=== PATIENT | female | born 1975 | race American Indian/Alaskan Native ===

== ENCOUNTER 2019-08-26 00:44 | Observation (INO) | payer BC ==
[2019-08-26] MEDS ORDERED: ASPIRIN PO ONE (01:28)
--- NOTE | 2019-08-26 02:09 | XRay Report ---
CHEST 1 VIEW INDICATION / CLINICAL INFORMATION: Chest Pain. COMPARISON: 07/31/2019 FINDINGS: SUPPORT DEVICES: None. HEART / MEDIASTINUM: No significant abnormality. LUNGS / PLEURA: No significant pulmonary or pleural abnormality. No pneumothorax. ADDITIONAL FINDINGS: No significant additional findings. IMPRESSION: 1. No acute findings. Signer Name: Jered Quintero MD Signed: 08/26/2019 2:05 AM Workstation Name: [id number]
[2019-08-26 02:10] LABS: Basophils % (Auto) 0.5 % (0.0-1.8); Eosinophils # (Auto) 0.2 K/mm3 (0.0-0.4); Eosinophils % (Auto) 2.9 % (0.0-4.3); Hematocrit 29.9 % (30.3-42.9); Hemoglobin 9.7 gm/dl (10.1-14.3); Lymphocytes % (Auto) 30.2 % (13.4-35.0); Mean Corpuscular HGB Conc 32 % (30-34); Mean Corpuscular Volume 76 fl (79-97); Monocytes # (Auto) 0.4 K/mm3 (0.0-0.8); Monocytes % (Auto) 6.6 % (0.0-7.3); Platelet Count 390 K/mm3 (140-440); Red Blood Count 3.95 M/mm3 (3.65-5.03)
[2019-08-26 02:28] LABS: Red Cell Distribution Width 22.3 % (13.2-15.2)
[2019-08-26 02:52] LABS: BUN/Creatinine Ratio 19; Blood Urea Nitrogen 15 mg/dL (7-17); Calcium 9.6 mg/dL (8.4-10.2); Hemolysis Index 0
[2019-08-26] MEDS ORDERED: NITRO-BID 2% TP ONE (03:34)
--- NOTE | 2019-08-26 03:47 | Emergency Department Report ---
HPI - General Chief Complaint: Chest Pain Time Seen by Provider: 08/26/19 03:21 - HPI HPI: Room 26 The patient is a 44-year-old female presenting with a chief complaint of chest pain. The patient states she went to bed at 21:30 this evening. The patient states she awakened on the floor and is uncertain how she got there. The patient states she did notice she had been incontinent of urine as well. The patient states she had a similar episode 2 weeks ago leading to hospitalization. The patient states she has had sharp intermittent chest pain since she awakened and has now turned into a tightness. Patient was to shortness of breath with the chest pain and diaphoresis. Patient denies nausea/vomiting. She says she's never had a stress test or cardiac catheterization. The patient states she lost 2 family members to heart disease ED Past Medical Hx - Past Medical History Previous Medical History?: Yes Additional medical history: ANEMIA WITH TRANSFUSIONS-FIBROIDS - Surgical History Past Surgical History?: Yes Additional Surgical History: C-SECTIONS X3, TUBILIGATION - Family History Family history: no significant - Social History Smoking Status: Never Smoker Substance Use Type: None (denies illicit drug use), Alcohol (occasional) - Medications Home Medications: Home Medications Medication Instructions Recorded Confirmed Last Taken Type Ferrous Gluconate [Fergon 325 MG 325 mg PO QDAY #30 tablet 08/01/19 Unknown Rx tab] ED Review of Systems ROS: Stated complaint: CHEST PAIN/DIZZINESS/SOB Other details as noted in HPI Constitutional: diaphoresis Eyes: denies: eye pain ENT: denies: throat pain Respiratory: shortness of breath Cardiovascular: chest pain Endocrine: no symptoms reported Gastrointestinal: denies: nausea, vomiting Musculoskeletal: denies: back pain Neurological: denies: headache Physical Exam - Physical Exam Vital Signs: Vital Signs 08/26/19 08/26/19 00:54 03:12 Temperature 97.8 F 98 F Pulse Rate 77 77 Respiratory 18 18 Rate Blood Pressure 132/85 129/92 [Right] O2 Sat by Pulse 99 100 Oximetry Physical Exam: GENERAL: The patient is well-developed well-nourished female lying on stretcher not appearing to be in acute distress. [] HEENT: Normocephalic. Atraumatic. Extraocular motions are intact. Patient has moist mucous membranes. NECK: Supple. No meningitic signs are noted. There is no adenopathy noted. CHEST/LUNGS: Clear to auscultation. There is no respiratory distress noted. HEART/CARDIOVASCULAR: Regular. There is no tachycardia. There is no gallop rub or murmur. ABDOMEN: Abdomen is soft, nontender. Patient has normal bowel sounds. There is no abdominal distention. SKIN: There is no rash. There is no edema. There is no diaphoresis. NEURO: The patient is awake, alert, and oriented. The patient is cooperative. The patient has no focal neurologic deficits. The patient has normal speech MUSCULOSKELETAL: There is no evidence of acute injury. ED Course Vital Signs 08/26/19 08/26/19 00:54 03:12 Temperature 97.8 F 98 F Pulse Rate 77 77 Respiratory 18 18 Rate Blood Pressure 132/85 129/92 [Right] O2 Sat by Pulse 99 100 Oximetry ED Medical Decision Making - Lab Data Result diagrams: 08/26/19 01:40 08/26/19 01:40 Laboratory Tests 08/26/19 08/26/19 08/26/19 01:40 01:40 04:10 WBC 6.6 RBC 3.95 Hgb 9.7 L Hct 29.9 L MCV 76 L MCH 25 L MCHC 32 RDW 22.3 H Plt Count 390 Lymph % (Auto) 30.2 Norman % (Auto) 6.6 Eos % (Auto) 2.9 Baso % (Auto) 0.5 Lymph # 2.0 Norman # 0.4 Eos # 0.2 Baso # 0.0 Seg Neutrophils % 59.8 Seg Neutrophils # 3.9 Sodium 139 Potassium 4.2 Chloride 102.4 Carbon Dioxide 24 Anion Gap 17 BUN 15 Creatinine 0.8 Estimated GFR > 60 BUN/Creatinine Ratio 19 Glucose 124 H Calcium 9.6 Troponin T < 0.010 < 0.010 - EKG Data -: EKG Interpreted by Me EKG shows normal: sinus rhythm Rate: normal - EKG Data When compared to previous EKG there are: no significant change Interpretation: unchanged when compared t (07/31/2019) - Radiology Data Radiology results: report reviewed (chest x-ray, CT head), image reviewed (chest x-ray, CT head) interpreted by me: Chest x-ray-no focal infiltrate, no pneumothorax [facility] [address] [place] [address] XRay Report Signed Patient: AGA PRECIADO MR#: [id number] : 1975 Acct:[id number] Age/Sex: 44 / F ADM Date: 08/26/19 Loc: ED Attending Dr: Ordering Physician: ESTEBAN GAMEZ MD Date of Service: 08/26/19 Pr ocedure(s): XR chest 1V ap Accession Number(s): [id number] cc: ESTEBAN GAMEZ MD Fluoro Time In Minutes: CHEST 1 VIEW INDICATION / CLINICAL INFORMATION: Chest Pain. COMPARISON: 07/31/2019 FINDINGS: SUPPORT DEVICES: None. HEART / MEDIASTINUM: No significant abnormality. LUNGS / PLEURA: No significant pulmonary or pleural abnormality. No pneumothorax. ADDITIONAL FINDINGS: No significant additional findings. IMPRESSION: 1. No acute findings. Signer Name: Jered Quintero MD Signed: 08/26/2019 2:05 AM Workstation Name: [id number] Transcribed By: OLAYINKA Dictated By: Jered Quintero MD Electronically Authenticated By: Jered Quintero MD Signed Date/Time: 08/26/19204 DD/ 3 TD/TT: [facility] [address] [place] [address] Cat Scan Report Signed Patient: AGA PRECIADO MR#: [id number] : 1975 Acct:[id number] Age/Sex: 44 / F ADM Date: 08/26/19 Loc: ED Attending Dr: Ordering Physician: CORNELIUS MOREIRA MD Date of Service: 08/26/19 Procedure(s): CT head/brain wo con Accession Number(s): [id number] cc: CORNELIUS MOREIRA MD CT head/brain wo con INDICATION / CLINICAL INFORMATION: syncope, awakened on floor. TECHNIQUE: All CT scans at this location are performed using CT dose reduction for ALARA by means of automated exposure control. COMPARISON: 07/31/2019 FINDINGS: No intracranial hemorrhage. No abnormal extra-axial fluid collection. No evidence of territorial infarction or mass effect. Ventricular system and basilar cisterns appearance is normal Visualized sinuses and orbital structures are normal No osseous abnormality. IMPRESSION: 1. Negative nonenhanced head CT. Signer Name: Jered Quintero MD Signed: 08/26/2019 5:33 AM Workstation Name: [id number] Transcribed By: [place] Dictated By: Jered Quintero MD Electronically Authenticated By: Jered Quintero MD Signed Date/Time: 08/26/19532 DD/ 0 TD/TT: - Differential Diagnosis epilepsy, ACS, pericarditis, PE Critical care attestation.: If time is entered above; I have spent that time in minutes in the direct care of this critically ill patient, excluding procedure time. ED Disposition Clinical Impression: Chest pain, Syncope Disposition: OP ADMIT IP TO THIS HOSP Is pt being admited?: Yes Does the pt Need Aspirin: Yes Condition: Fair Instructions: Chest Pain (ED), Syncope (ED) Referrals: LEOLA JOHNSON MD [Primary Care Provider] - 3-5 Days Time of Disposition: 05:45 (hospitalist paged (Dr. Yany Mac))
--- NOTE | 2019-08-26 05:37 | Cat Scan Report ---
CT head/brain wo con INDICATION / CLINICAL INFORMATION: syncope, awakened on floor. TECHNIQUE: All CT scans at this location are performed using CT dose reduction for ALARA by means of automated e xposure control. COMPARISON: 07/31/2019 FINDINGS: No intracranial hemorrhage. No abnormal extra-axial fluid collection. No evidence of territorial infarction or mass effect. Ventricular system and basilar cisterns appearance is normal Visualized sinuses and orbital structures are normal No osseous abnormality. IMPRESSION: 1. Negative nonenhanced head CT. Signer Name: Jered Quintero MD Signed: 08/26/2019 5:33 AM Workstation Name: [id number]
[2019-08-26] MEDS ORDERED: ZOFRAN IV PRN (05:52)
[2019-08-26] MEDS ORDERED: SODIUM CHLORIDE FLUSH SYRINGE 10 ML IV PRN (05:52)
[2019-08-26] MEDS ORDERED: TYLENOL PO PRN (05:52)
[2019-08-26] MEDS ORDERED: MORPHINE IV PRN (05:52)
[2019-08-26] MEDS ORDERED: NITROSTAT SL PRN (05:52)
[2019-08-26] MEDS ORDERED: ASPIRIN ONE (05:57)
--- NOTE | 2019-08-26 06:04 | History and Physical Report ---
<CIRILO HIRSCH - Last Filed: 08/26/19 06:16> History of Present Illness Date of examination: 08/26/19 Date of admission: 08/26/2019 Chief complaint: chest pain History of present illness: 44-year-old -Citizen Of [place] female with history of anemia S/P transfusion (07/2019) who presents [facility] ED with complaints of chest pain and an episode of urinary incontinence. Patient states she went to bed around 9pm. Patient woke up around 11 PM to find herself on the floor unsure of how she got there, does not recall falling out of bed and was incontinent with urine as well. Pain is located substernally to the left and right side of chest . She describes her pain as sharp intermittent 7/10 pain. Patient is accompanied by diaphoresis and shortness of breath. Her pain is relieved by pain medication and rest. At the time of my examination patient is sitting up in stretcher and resting comfortably. She is able to maintain conversation and states that her pain has improved and is now 3/10. Review of chart shows patient was recently admitted for syncope, at which time echo was done and it was found to be WNL. Past History Past Medical History: anemia (s/p tranfusion 07/2019), other (fibroids) Past Surgical History: (x3), Other (tubal ligation) Social history: lives with family, other (patient will alcohol use) Family history: no significant family history Medications and Allergies Allergies Allergy/AdvReac Type Severity Reaction Status Date / Time metronidazole [From Flagyl] Allergy Unknown Verified 07/31/19 22:00 Penicillins Allergy Unknown Verified 07/31/19 22:00 prochlorperazine Allergy Unknown Verified 07/31/19 22:00 [From Compazine] promethazine [From Phenergan] Allergy Unknown Verified 07/31/19 22:00 sumatriptan [From Imitrex] Allergy Unknown Verified 07/31/19 22:00 Home Medications Medication Instructions Recorded Confirmed Last Taken Type Ferrous Gluconate [Fergon 325 MG 325 mg PO QDAY #30 tablet 08/01/19 Unknown Rx tab] Active Meds: Active Medications Acetaminophen (Tylenol) 650 mg PO Q4H PRN PRN Reason: Pain MILD(1-3)/Fever >100.5/STAUFFER Atorvastatin Calcium (Lipitor) 40 mg PO QHS [facility] Enoxaparin Sodium (Lovenox) 40 mg SUB-Q QDAY [facility] Ferrous Gluconate (Fergon) 324 mg PO QDAY [facility] Morphine Sulfate (Morphine) 2 mg IV Q4H PRN PRN Reason: Pain, Moderate (4-6) Nitroglycerin (Nitrostat) 0.4 mg SL Q5M PRN PRN Reason: Chest Pain Ondansetron HCl (Zofran) 4 mg IV Q6H PRN PRN Reason: Nausea And Vomiting Sodium Chloride (Sodium Chloride Flush Syringe 10 Ml) 10 ml IV BID JONAH Sodium Chloride (Sodium Chloride Flush Syringe 10 Ml) 10 ml IV PRN PRN PRN Reason: LINE FLUSH Review of Systems All systems: negative Cardiovascular: chest pain Respiratory: shortness of breath, other (diaphoresis) Genitourinary Female: other (incontinence ) Exam - Physical Exam Narrative exam: General appearance: Present: No acute distress, alert and oriented 3, well- developed, well-nourished, adult female - EENT Eyes: Present: PERRL, EOM intact ENT: hearing intact, normal dentition - Neck Neck: Present: supple, normal ROM - Respiratory Respiratory effort: Non-labored Respiratory: bilateral: CTA - Cardiovascular Heart rate:72 (bpm) Rhythm:SR Heart Sounds: Present: S1, S2 - Extremities Extremities: no ischemia, pulses intact - Peripheral Assessment Peripheral Pulses: within normal limits - Abdominal General gastrointestinal: soft, non-tender, normal bowel sounds - Integumentary Integumentary: Present: warm, dry - Musculoskeletal Musculoskeletal: able to move all extremities -Neurological Neurological: CN II-XII grossly intact - Psychiatric Psychiatric: cooperative - Constitutional Vitals: Temp Pulse Resp BP Pulse Ox 98 F 69 19 126/66 100 08/26/19 03:12 08/26/19 05:16 08/26/19 05:16 08/26/19 05:16 08/26/19 05:16 Results - Labs CBC & Chem 7: 08/26/19 01:40 08/26/19 01:40 Labs: Laboratory Last Values WBC 6.6 K/mm3 (4.5-11.0) 08/26/19 01:40 RBC 3.95 M/mm3 (3.65-5.03) 08/26/19 01:40 Hgb 9.7 gm/dl (10.1-14.3) L 08/26/19 01:40 Hct 29.9 % (30.3-42.9) L 08/26/19 01:40 MCV 76 fl (79-97) L 08/26/19 01:40 MCH 25 pg (28-32) L 08/26/19 01:40 MCHC 32 % (30-34) 08/26/19 01:40 RDW 22.3 % (13.2-15.2) H 08/26/19 01:40 Plt Count 390 K/mm3 (140-440) 08/26/19 01:40 Lymph % (Auto) 30.2 % (13.4-35.0) 08/26/19 01:40 [place] % (Auto) 6.6 % (0.0-7.3) 08/26/19 01:40 Eos % (Auto) 2.9 % (0.0-4.3) 08/26/19 01:40 Baso % (Auto) 0.5 % (0.0-1.8) 08/26/19 01:40 Lymph # 2.0 K/mm3 (1.2-5.4) 08/26/19 01:40 [place] # 0.4 K/mm3 (0.0-0.8) 08/26/19 01:40 Eos # 0.2 K/mm3 (0.0-0.4) 08/26/19 01:40 Baso # 0.0 K/mm3 (0.0-0.1) 08/26/19 01:40 Seg Neutrophils % 59.8 % (40.0-70.0) 08/26/19 01:40 Seg Neutrophils # 3.9 K/mm3 (1.8-7.7) 08/26/19 01:40 Sodium 139 mmol/L (137-145) 08/26/19 01:40 Potassium 4.2 mmol/L (3.6-5.0) 08/26/19 01:40 Chloride 102.4 mmol/L (98-107) 08/26/19 01:40 Carbon Dioxide 24 mmol/L (22-30) 08/26/19 01:40 Anion Gap 17 mmol/L 08/26/19 01:40 BUN 15 mg/dL (7-17) 08/26/19 01:40 Creatinine 0.8 mg/dL (0.7-1.2) 08/26/19 01:40 Estimated GFR > 60 ml/min 08/26/19 01:40 BUN/Creatinine Ratio 19 % 08/26/19 01:40 Glucose 124 mg/dL (65-100) H 08/26/19 01:40 Calcium 9.6 mg/dL (8.4-10.2) 08/26/19 01:40 Troponin T < 0.010 ng/mL (0.00-0.029) 08/26/19 04:10 - Imaging and Cardiology Imaging and Cardiology: CXR: FINDINGS: SUPPORT DEVICES: None. HEART / MEDIASTINUM: No significant abnormality. LUNGS / PLEURA: No significant pulmonary or pleural abnormality. No pneumothorax. ADDITIONAL FINDINGS: No significant additional findings. IMPRESSION: 1. No acute findings. CT Head: FINDINGS: No intracranial hemorrhage. No abnormal extra-axial fluid collection. No evidence of territorial infarction or mass effect. Ventricular system and basilar cisterns appearance is normal Visualized sinuses and orbital structures are normal No osseous abnormality. IMPRESSION: 1. Negative nonenhanced head CT. Assessment and Plan Assessment and plan: 44-year-old -Citizen Of [place] female with history of anemia S/P transfusion (07/2019) who presents [facility] ED with complaints of chest pain and an episode of urinary incontinence. Will admit as OBS for further evaluation. Acute Chest Pain R/O ACS -Initiate chest pain protocol -Continuous telemetry monitoring -Continue supportive care -Pain mgmt -Stress Test (treadmill) pending -Troponin negative x 2, will continue to trend -On ASA and Statin -Echo done on 08/01/19 WNL -Will defer any additional cardiac workup per cardiology recommendations -Cardiology consulted Suspicion of recent fall -Patient awake up on floor and uncertain how she got there -CT Head negative -Neuro checks -Continue supportive care Anemia -s/p transfusion 07/2019 -Hgb on admission 9.7 -No signs/symptoms of active bleeding -Continue to monitor hemoglobin -Transfuse as needed DVT PPX -on Lovenox Advance Directives: No VTE prophylaxis?: Chemical Plan of care discussed with patient/family: Yes <LAYLA NOLASCO - Last Filed: 08/26/19 06:48> Medications and Allergies Active Meds: Active Medications Acetaminophen (Tylenol) 650 mg PO Q4H PRN PRN Reason: Pain MILD(1-3)/Fever >100.5/STAUFFER Aspirin (Baby Aspirin) 81 mg PO QDAY JONAH Atorvastatin Calcium (Lipitor) 40 mg PO QHS JONAH Enoxaparin Sodium (Lovenox) 40 mg SUB-Q QDAY [facility] Ferrous Gluconate (Fergon) 324 mg PO QDAY JONAH Morphine Sulfate (Morphine) 2 mg IV Q4H PRN PRN Reason: Pain, Moderate (4-6) Nitroglycerin (Nitrostat) 0.4 mg SL Q5M PRN PRN Reason: Chest Pain Ondansetron HCl (Zofran) 4 mg IV Q6H PRN PRN Reason: Nausea And Vomiting Sodium Chloride (Sodium Chloride Flush Syringe 10 Ml) 10 ml IV BID JONAH Sodium Chloride (Sodium Chloride Flush Syringe 10 Ml) 10 ml IV PRN PRN PRN Reason: LINE FLUSH Exam - Constitutional Vitals: Temp Pulse Resp BP Pulse Ox 98 F 73 23 113/72 99 08/26/19 03:12 08/26/19 06:01 08/26/19 06:01 08/26/19 06:01 08/26/19 06:01 Results - Labs CBC & Chem 7: 08/26/19 01:40 08/26/19 01:40 Labs: Laboratory Last Values WBC 6.6 K/mm3 (4.5-11.0) 08/26/19 01:40 RBC 3.95 M/mm3 (3.65-5.03) 08/26/19 01:40 Hgb 9.7 gm/dl (10.1-14.3) L 08/26/19 01:40 Hct 29.9 % (30.3-42.9) L 08/26/19 01:40 MCV 76 fl (79-97) L 08/26/19 01:40 MCH 25 pg (28-32) L 08/26/19 01:40 MCHC 32 % (30-34) 08/26/19 01:40 RDW 22.3 % (13.2-15.2) H 08/26/19 01:40 Plt Count 390 K/mm3 (140-440) 08/26/19 01:40 Lymph % (Auto) 30.2 % (13.4-35.0) 08/26/19 01:40 Dallas % (Auto) 6.6 % (0.0-7.3) 08/26/19 01:40 Eos % (Auto) 2.9 % (0.0-4.3) 08/26/19 01:40 Baso % (Auto) 0.5 % (0.0-1.8) 08/26/19 01:40 Lymph # 2.0 K/mm3 (1.2-5.4) 08/26/19 01:40 [place] # 0.4 K/mm3 (0.0-0.8) 08/26/19 01:40 Eos # 0.2 K/mm3 (0.0-0.4) 08/26/19 01:40 Baso # 0.0 K/mm3 (0.0-0.1) 08/26/19 01:40 Seg Neutrophils % 59.8 % (40.0-70.0) 08/26/19 01:40 Seg Neutrophils # 3.9 K/mm3 (1.8-7.7) 08/26/19 01:40 Sodium 139 mmol/L (137-145) 08/26/19 01:40 Potassium 4.2 mmol/L (3.6-5.0) 08/26/19 01:40 Chloride 102.4 mmol/L (98-107) 08/26/19 01:40 Carbon Dioxide 24 mmol/L (22-30) 08/26/19 01:40 Anion Gap 17 mmol/L 08/26/19 01:40 BUN 15 mg/dL (7-17) 08/26/19 01:40 Creatinine 0.8 mg/dL (0.7-1.2) 08/26/19 01:40 Estimated GFR > 60 ml/min 08/26/19 01:40 BUN/Creatinine Ratio 19 % 08/26/19 01:40 Glucose 124 mg/dL (65-100) H 08/26/19 01:40 Calcium 9.6 mg/dL (8.4-10.2) 08/26/19 01:40 Troponin T < 0.010 ng/mL (0.00-0.029) 08/26/19 04:10 Triglycerides 66 mg/dL (2-149) 08/26/19 06:02 Cholesterol 160 mg/dL (50-199) 08/26/19 06:02 LDL Cholesterol Direct 105 mg/dL (50-130) 08/26/19 06:02 HDL Cholesterol 53 mg/dL (40-59) 08/26/19 06:02 Cholesterol/HDL Ratio 3.01 % 08/26/19 06:02 Assessment and Plan Assessment and plan: Patient seen and examined with nurse practitioner, agree with stress tests, is continuing cardiology consult. add d-dimer
[2019-08-26 06:44] LABS: Chol/HDL Ratio 3.01 %
[2019-08-26] MEDS: ENOXAPARIN SUB-Q SCH ×2 (09:42→12:00)
[2019-08-26] MEDS ORDERED: FERGON PO SCH (10:00)
[2019-08-26] MEDS ORDERED: SODIUM CHLORIDE FLUSH SYRINGE 10 ML IV SCH (10:00)
--- NOTE | 2019-08-26 10:22 | Event Note ---
Date: 08/26/19 Patient admitted today was seen and examined. No active chest pain presently. We'll continue with current management plan and follow-up with stress test results
[2019-08-26 15:58] VITALS: BP 116/63
--- NOTE | 2019-08-26 18:35 | Discharge Summary ---
Providers - Providers Date of Admission: 08/26/19 05:52 Date of discharge: 08/26/19 Attending physician: STEPHANY MATA 08/26/19 Consult to Cardiac Rehabilitation [CONS] Routine Reason For Exam: Phase I [facility] Reason for admission: chest pain, anemia Condition: Fair Pertinent studies: CT of the head was unremarkable Chest x-ray was unremarkable EKG was normal Stress test was normal Procedures: Known Hospital course: 44-year-old -[place] female with history of anemia S/P transfusion (07/2019) who [facility] with complaints of chest pain and an episode of urinary incontinence. Patient states she went to bed around 9pm. Patient woke up around 11 PM to find herself on the floor unsure of how she got there, does not recall falling out of bed and was incontinent with urine as well. Pain is located substernally to the left and right side of chest . She describes her pain as sharp intermittent 7/10 pain. Patient is accompanied by diaphoresis and shortness of breath. Her pain is relieved by pain medication and rest. At the time of my examination patient is sitting up in stretcher and resting comfortably. She is able to maintain conversation and states that her pain has improved and is now 3/10. Review of chart shows patient was recently admitted for syncope, at which time echo was done and it was found to be WNL. On admission patient was commenced on oxygen, nitroglycerin, aspirin and morphine. Stress test was done. Report was normal. Chest pain resolved. Genitorectal been discharged to follow primary care physician in 3-5 days. Anemia secondary to menorrhagia from uterine fibroid will arrange a follow-up on outpatient basis with a electrician front to address her uterine fibroid. Disposition: - TO HOME OR SELFCARE Time spent for discharge: 35 min - Discharge Diagnoses (1) Anemia, iron deficiency Status: Acute (2) Chest pain Status: Acute Core Measure Documentation - Palliative Care Palliative Care/ Comfort Measures: Not Applicable - Core Measures Any of the following diagnoses?: none Exam - Physical Exam Narrative exam: Constitutional: Well-nourished well-developed. In no distress Head: Normocephalic atraumatic Eyes: Pupils are equal round and reactive to light Nose: No enlarged turbinates, no septal deviation. Mouth: Moist mucous membranes. Neck: Supple no thyromegaly. No bruit. No JVD Heart: Regular rate and rhythm, S1-S2 normal. No rubs murmurs or gallop Lungs: Clear to auscultation bilaterally. no rales or rhonchi Abdomen: Soft, nontender. Bowel sound are present. Extremities: No edema, no cyanosis, no clubbing. Neuro: Alert oriented Oriented x3. No focal sensory or motor deficit. Skin: No rashes or hyperpigmented spots Musculoskeletal system: No joint pain or swelling Hematological: No petechia or subcutanous hemorrhages. Immunological: No multiple septic spots on the skin Lymphatic: No generalized lymphadenopathy Psychiatry: Euthymic. Calm. - Constitutional Vitals: Temp Pulse Resp BP Pulse Ox 98.2 F 79 18 116/63 97 08/26/19 15:55 08/26/19 15:55 08/26/19 15:55 08/26/19 15:55 08/26/19 15:55 Plan Activity: fall precautions Weight Bearing Status: Non-Weight Bearing Diet: regular [facility] [Primary Care Provider] - 3-5 Days (F/u with Dr Mata in 3-5 days) Forms: Work/School Release Form Prescriptions: Ferrous Gluconate [Fergon 325 MG tab] 324 mg PO QDAY #30 tablet Vit C/Ascorbate Calcium,Sodium [Vitamin C 500 mg/15 ml Liquid] 500 mg PO QDAC #30 liquid
[2019-08-27] MEDS ORDERED: BABY ASPIRIN PO SCH (10:00)
== END 2019-08-26 19:30 | disposition home or self-care (01) ==
LOC: SUATTDRO 00:44 → ED 00:44 → 4A 05:52
PROVIDERS: ADMIT Internal Medicine; ATTEND Family Medicine
DX: R07.89 Other chest pain (principal); D64.9 Anemia, unspecified; R55 Syncope and collapse
CPT/HCPCS: 36415; 70450; 71045; 80048; 80061; 84484; 85025; 85379; 93005; 93010; 93017; G0378; J1650

== ENCOUNTER 2021-12-21 13:21 | Observation (INO) | payer BC, OTHER ==
[2021-12-21] MEDS ORDERED: ASPIRIN 325 MG TAB PO ONE (14:07)
--- NOTE | 2021-12-21 14:17 | Event Note ---
ED Screening Note ED Screening Note: AC ANEMIA SYNCOPE THIS AM SON FOUND ON FLOOR PT OF DR METZ SHE HAS PROLONGED PERIOD LAST MONTH- DR METZ GAVE HER HORMONES TO STOP THIS IS ON TOP OF HER FE DEF ANEMIA SHE REPORTS WEAKNESS AND FEELING LIKE HEART IS RACING This initial assessment/diagnostic orders/clinical plan/treatment(s) is/are subject to change based on patients health status, clinical progression and re- assessment by fellow clinical providers in the ED. Further treatment and workup at subsequent clinical providers discretion. Patient/guardian urged not to elope from the ED as their condition may be serious if not clinically assessed and managed. Initial orders include: EKG LABS UA T/C FE PANEL
--- NOTE | 2021-12-21 14:38 | XRay Report ---
CHEST 2 VIEWS INDICATION / CLINICAL INFORMATION: SYNCOPE. COMPARISON: 08/26/19. FINDINGS: SUPPORT DEVICES: None. HEART / MEDIASTINUM: The heart size and pulmonary vasculature are normal. The aorta is normal in allyson sharron. LUNGS / PLEURA: No significant pulmonary or pleural abnormality. No pneumothorax. ADDITIONAL FINDINGS: No significant additional findings. IMPRESSION: No acute abnormality or significant change. Signer Name: Law Quintana MD Signed: 12/21/2021 2:33 PM Workstation Name: [id number]
[2021-12-21 15:56] LABS: Basophils % (Auto) 0.8 % (0.0-1.8); Eosinophils # (Auto) 0.1 K/mm3 (0.0-0.4); Eosinophils % (Auto) 2.1 % (0.0-4.3); Hematocrit 32.2 % (30.3-42.9); Hemoglobin 9.8 gm/dl (10.1-14.3); Lymphocytes # (Auto) 1.5 K/mm3 (1.2-5.4); Lymphocytes % (Auto) 33.8 % (13.4-35.0); Mean Corpuscular HGB Conc 31 % (30-34); Mean Corpuscular Volume 75 fl (79-97); Monocytes # (Auto) 0.4 K/mm3 (0.0-0.8); Platelet Count 351 K/mm3 (140-440); Red Blood Count 4.28 M/mm3 (3.65-5.03); Red Cell Distribution Width 18.3 % (13.2-15.2)
[2021-12-21 16:04] LABS: Alanine Aminotransferase 14 units/L (7-56); BUN/Creatinine Ratio 11; Blood Urea Nitrogen 12 mg/dL (7-17); Calcium 9.3 mg/dL (8.4-10.2); Hemolysis Index 5
--- NOTE | 2021-12-21 21:56 | Emergency Department Report ---
HPI - General Chief Complaint: Syncope Time Seen by Provider: 12/21/21 14:14 - HPI HPI: Room 34 The patient is a 46-year-old female present with a chief complaint of syncope. The patient states for the past 2 to 3 days she has had intermittent palpitati ons lasting several seconds. Patient states this morning while washing dishes she again felt her heart fluttering and had a syncopal episode waking up on the floor with her son standing over her. Son called 911 the patient was transported to the ED. Patient admits to some shortness of breath with a fluttering but denies chest pain nausea vomiting. Patient denies history of fever. The patient states she has been vaccinated against COVID ED Past Medical Hx - Past Medical History Additional medical history: ANEMIA WITH TRANSFUSIONS-FIBROIDS - Surgical History Additional Surgical History: C-SECTIONS X3, TUBILIGATION - Family History Family history: no significant - Social History Smoking Status: Never Smoker Substance Use Type: None (Denies illicit drug use) - Medications Home Medications: Home Medications Medication Instructions Recorded Confirmed Last Taken Type Ferrous Gluconate [Fergon 325 MG 324 mg PO QDAY #30 tablet 08/26/19 Unknown Rx tab] Vit C/Ascorbate Calcium,Sodium 500 mg PO QDAC #30 liquid 08/26/19 Unknown Rx [Vitamin C 500 mg/15 ml Liquid] ED Review of Systems ROS: Stated complaint: LOW IRON/PER MD/FAINTED/FAST HEARTBEAT Other details as noted in HPI Constitutional: denies: diaphoresis, fever Eyes: denies: eye pain ENT: denies: throat pain Respiratory: denies: shortness of breath Cardiovascular: chest pain, palpitations Endocrine: no symptoms reported Gastrointestinal: denies: nausea, vomiting Genitourinary: denies: dysuria Musculoskeletal: denies: back pain Neurological: denies: headache Physical Exam - Physical Exam Vital Signs: Vital Signs 12/21/21 14:04 Temperature 98.3 F Pulse Rate 81 Respiratory 18 Rate Blood Pressure 171/104 [Left] O2 Sat by Pulse 100 Oximetry Physical Exam: GENERAL: The patient is well-developed well-nourished female lying on stretcher not appearing to be in acute distress. [] HEENT: Normocephalic. Atraumatic. Extraocular motions are intact. Patient has moist mucous membranes. NECK: Supple. No meningitic signs are noted. Trachea midline CHEST/LUNGS: Clear to auscultation. There is no respiratory distress noted. HEART/CARDIOVASCULAR: Regular. There is no tachycardia. There is no gallop rub or murmur. ABDOMEN: Abdomen is soft, nontender. Patient has normal bowel sounds. There is no abdominal distention. SKIN: There is no rash. There is no edema. There is no diaphoresis. NEURO: The patient is awake, alert, and oriented. The patient is cooperative. The patient has no focal neurologic deficits. The patient has normal speech. Cranial nerves II through XII grossly intact. GCS 15 MUSCULOSKELETAL: There is no evidence of acute injury. ED Course Vital Signs 12/21/21 14:04 Temperature 98.3 F Pulse Rate 81 Respiratory 18 Rate Blood Pressure 171/104 [Left] O2 Sat by Pulse 100 Oximetry ED Medical Decision Making - Lab Data Result diagrams: 12/21/21 15:15 12/21/21 15:15 Laboratory Tests 12/21/21 12/21/21 12/21/21 15:15 15:15 15:15 WBC 4.4 L RBC 4.28 Hgb 9.8 L Hct 32.2 MCV 75 L MCH 23 L MCHC 31 RDW 18.3 H Plt Count 351 Lymph % (Auto) 33.8 [place] % (Auto) 9.0 H Eos % (Auto) 2.1 Baso % (Auto) 0.8 Lymph # (Auto) 1.5 [place] # (Auto) 0.4 Eos # (Auto) 0.1 Baso # (Auto) 0.0 Seg Neutrophils % 54.3 Seg Neutrophils # 2.4 D-Dimer Sodium 137 Potassium 4.3 Chloride 103.1 Carbon Dioxide 23 Anion Gap 15 BUN 12 Creatinine 1.1 Estimated GFR > 60 BUN/Creatinine Ratio 11 Glucose 151 H Calcium 9.3 Magnesium Total Bilirubin 0.20 AST 17 ALT 14 Alkaline Phosphatase 98 Troponin T < 0.010 Total Protein 7.8 Albumin 4.0 Albumin/Globulin Ratio 1.1 TSH Free T4 Urine Color Urine Turbidity Urine pH Ur Specific [place] Urine Protein Urine Glucose (UA) Urine Ketones Urine Blood Urine Nitrite Ur Reducing Substances Urine Bilirubin Urine Ictotest Urine Urobilinogen Ur Leukocyte Esterase Urine WBC (Auto) Urine RBC (Auto) U Epithel Cells (Auto) Urine Mucus Blood Type A POSITIVE Antibody Screen Negative 12/21/21 12/21/21 12/21/21 17:29 22:39 22:52 WBC RBC Hgb Hct MCV MCH MCHC RDW Plt Count Lymph % (Auto) [place] % (Auto) Eos % (Auto) Baso % (Auto) Lymph # (Auto) [place] # (Auto) Eos # (Auto) Baso # (Auto) Seg Neutrophils % Seg Neutrophils # D-Dimer 313.58 H Sodium Potassium Chloride Carbon Dioxide Anion Gap BUN Creatinine Estimated GFR BUN/Creatinine Ratio Glucose Calcium Magnesium Total Bilirubin AST ALT Alkaline Phosphatase Troponin T < 0.010 Total Protein Albumin Albumin/Globulin Ratio TSH Free T4 Urine Color Yellow Urine Turbidity Clear Urine pH 5.0 Ur Specific [place] 1.025 Urine Protein <15 mg/dl Urine Glucose (UA) Negative Urine Ketones Negative Urine Blood Negative Urine Nitrite Negative Ur Reducing Substances Not Reportable Urine Bilirubin Negative Urine Ictotest Not Reportable Urine Urobilinogen < 2.0 Ur Leukocyte Esterase Negative Urine WBC (Auto) 1.0 Urine RBC (Auto) 2.0 U Epithel Cells (Auto) 6.0 Urine Mucus 2+ Blood Type Antibody Screen 12/21/21 12/21/21 22:52 22:52 WBC RBC Hgb Hct MCV MCH MCHC RDW Plt Count Lymph % (Auto) [place] % (Auto) Eos % (Auto) Baso % (Auto) Lymph # (Auto) [place] # (Auto) Eos # (Auto) Baso # (Auto) Seg Neutrophils % Seg Neutrophils # D-Dimer Sodium Potassium Chloride Carbon Dioxide Anion Gap BUN Creatinine Estimated GFR BUN/Creatinine Ratio Glucose Calcium Magnesium 1.90 Total Bilirubin AST ALT Alkaline Phosphatase Troponin T Total Protein Albumin Albumin/Globulin Ratio TSH 2.030 Free T4 1.17 Urine Color Urine Turbidity Urine pH Ur Specific [place] Urine Protein Urine Glucose (UA) Urine Ketones Urine Blood Urine Nitrite Ur Reducing Substances Urine Bilirubin Urine Ictotest Urine Urobilinogen Ur Leukocyte Esterase Urine WBC (Auto) Urine RBC (Auto) U Epithel Cells (Auto) Urine Mucus Blood Type Antibody Screen - EKG Data -: EKG Interpreted by Me EKG shows normal: sinus rhythm Rate: normal - EKG Data When compared to previous EKG there are: previous EKG unavailable Interpretation: other (No ischemic changes seen) - Radiology Data Radiology results: report reviewed (CT head, CT chest), image reviewed (CT head, CT chest) interpreted by me: Chest x-ray-no definite focal infiltrates, no pneumothorax [facility] [address] [place] [address] Cat Scan Report Signed Patient: AGA PRECIADO MR#: [id number] : 1975 Acct:[id number] Age/Sex: 46 / F ADM Date: 12/21/21 Loc: ED Attending Dr: Ordering Physician: CORNELIUS MOREIRA MD Date of Service: 12/22/21 Procedure(s): CT angio chest Accession Number(s): [id number] cc: CORNELIUS MOREIRA MD CTA CHEST WITH CONTRAST INDICATION / CLINICAL INFORMATION: Syncope, shortness of breath, elevated D-dimer. TECHNIQUE: Axial CT images were obtained through the chest after injection of 100 cc Omnipaque 350 IV contrast. 3 plane MIP and/or 3D reconstructions were produced. All CT scans at this location are performed using CT dose reduction for ALARA by means of automated exposure control. COMPARISON: None available. FINDINGS: VASCULAR FINDINGS: PULMONARY ARTERY: Pulmonary artery is normal in size. No filling defects are present compatible with pulmonary artery embolus.. THORACIC AORTA: No significant abnormality. CORONARY ARTERY CALCIFICATION: None. NONVASCULAR FINDINGS: LOWER NECK:Soft tissues of the lower neck and thyroid demonstrate no significant abnormalities or acute findings. HEART: No significant abnormality. MEDIASTINUM / ERIKA: No significant abnormality. ESOPHAGUS: No significant abnormality. LYMPH NODES: No adenopathy within the axilla, mediastinum, or erika. LUNGS: No acute air space or interstitial disease. PLEURA: No pleural effusion. No pneumothorax. THORACIC SOFT TISSUES: No significant abnormality of the chest wall or upper thoracic musculature. BONES: No significant skeletal abnormalities. ADDITIONAL CHEST FINDINGS: None. UPPER ABDOMEN: No significant abnormality. IMPRESSION: 1. No CT evidence for pulmonary embolism. 2. No acute findings. Signer Name: Jamari Michaud II, MD Signed: 12/22/2021 1:30 AM Workstation Name: [id number] Transcribed By: LOY Dictated By: JAMARI MICHAUD II, MD Electronically Authenticated By: JAMARI MICHAUD II, MD Signed Date/Time: 12/22/21 0130 DD/ 0128 TD/TT: Print Cancel [facility] [address] [place] [id number] Cat Scan Report Signed Patient: AGA PRECIADO MR#: [id number] : 1975 Acct:[id number] Age/Sex: 46 / F ADM Date: 12/21/21 Loc: ED Attending Dr: Ordering Physician: CORNELIUS MOREIRA MD Date of Service: 12/21/21 Procedure(s): CT head/brain wo con Accession Number(s): [id number] cc: CORNELIUS MOREIRA MD CT HEAD WITHOUT CONTRAST INDICATION / CLINICAL INFORMATION: Syncope. TECHNIQUE: CT of the head was performed without administration of intravenous contrast. All CT scans at this location are performed using CT dose reduction fo r ALARA by means of automated exposure control. COMPARISON: CT head 08/26/2019 FINDINGS: CEREBRAL PARENCHYMA: No significant abnormality. No acute territorial infarct. HEMORRHAGE: None. EXTRA-AXIAL SPACES: Normal in size and morphology for the patient's age. VENTRICULAR SYSTEM: Normal in size and morphology for the patient's age. MIDLINE SHIFT / HERNIATION: None. CEREBELLUM / BRAINSTEM: No significant abnormality. ORBITS: Normal as visualized. SOFT TISSUES: No significant abnormality. SKULL: No significant abnormality. PARANASAL SINUSES / MASTOID AIR CELLS: Normal as visualized. ADDITIONAL FINDINGS: None. IMPRESSION: 1. No acute intracranial abnormality. Signer Name: Jamari Michaud II, MD Signed: 12/21/2021 10:38 PM Workstation Name: [id number] Transcribed By: LOY Dictated By: JAMARI MICHAUD II, MD Electronically Authenticated By: JAMARI MICHAUD II, MD Signed Date/Time: 12/21/212237 DD/ 37 TD/TT: Print Cancel [facility] [address] [place] [address] XRay Report Signed Patient: AGA PRECIADO MR#: [id number] : 1975 Acct:[id number] Age/Sex: 46 / F ADM Date: 12/21/21 Loc: ED Attending Dr: Ordering Physician: ESTEBAN GAMEZ MD Date of Service: 12/21/21 Procedure(s): XR chest routine 2V Accession Number(s): [id number] cc: ESTEBAN GAMEZ MD Fluoro Time In Minutes: CHEST 2 VIEWS INDICATION / CLINICAL INFORMATION: SYNCOPE. COMPARISON: 08/26/19. FINDINGS: SUPPORT DEVICES: None. HEART / MEDI ASTINUM: The heart size and pulmonary vasculature are normal. The aorta is normal in caliber. LUNGS / PLEURA: No significant pulmonary or pleural abnormality. No pneumothorax. ADDITIONAL FINDINGS: No significant additional findings. IMPRESSION: No acute abnormality or significant change. Signer Name: Law Quintana MD Signed: 12/21/2021 2:33 PM Workstation Name: [id number] Transcribed By: RT Dictated By: Law Quintana MD Electronically Authenticated By: Law Quintana MD Signed Date/Time: 12/21/211432 DD/ 31 TD/TT: Print Cancel - Differential Diagnosis Dysrhythmia, PE, ACS, hyperthyroidism, Critical care attestation.: If time is entered above; I have spent that time in minutes in the direct care of this critically ill patient, excluding procedure time. ED Disposition Clinical Impression: Syncope, Palpitations Disposition: ADMITTED INPATIENT Is pt being admited?: Yes Does the pt Need Aspirin: Yes Condition: Fair Instructions: Syncope (ED) Referrals: SANGEETA METZ MD [Primary Care Provider] - 3-5 Days Time of Disposition: 01:44 (Hospitalist called (Dr. Gray))
--- NOTE | 2021-12-21 22:43 | Cat Scan Report ---
CT HEAD WITHOUT CONTRAST INDICATION / CLINICAL INFORMATION: Syncope. TECHNIQUE: CT of the head was performed without administration of intravenous contrast. All CT scans at this location are performed using CT dose reduction for ALARA by means of automated exposure contr ol. COMPARISON: CT head 08/26/2019 FINDINGS: CEREBRAL PARENCHYMA: No significant abnormality. No acute territorial infarct. HEMORRHAGE: None. EXTRA-AXIAL SPACES: Normal in size and morphology for the patient's age. VENTRICULAR SYSTEM: Normal in size and morphology for the patient's age. MIDLINE SHIFT / HERNIATION: None. CEREBELLUM / BRAINSTEM: No significant abnormality. ORBITS: Normal as visualized. SOFT TISSUES: No significant abnormality. SKULL: No significant abnormality. PARANASAL SINUSES / MASTOID AIR CELLS: Normal as visualized. ADDITIONAL FINDINGS: None. IMPRESSION: 1. No acute intracranial abnormality. Signer Name: Joe Pina II, MD Signed: 12/21/2021 10:38 PM Workstation Name: [id number]
[2021-12-21 23:12] LABS: Mucus,Urine 2+ /HPF
[2021-12-21 23:13] LABS: Bilirubin,Urine Negative (Negative); Blood,Urine Negative (Negative); Color,Urine Yellow (Yellow); Protein,Urine <15 mg/dL mg/dL (Negative); Urobilinogen,Urine < 2.0 mg/dL (<2.0)
[2021-12-22 00:24] LABS: Free T4 (Free Thyroxine) 1.17 ng/dL (0.76-1.46)
--- NOTE | 2021-12-22 01:34 | Cat Scan Report ---
CTA CHEST WITH CONTRAST INDICATION / CLINICAL INFORMATION: Syncope, shortness of breath, elevated D-dimer. TECHNIQUE: Axial CT images were obtained through the chest after injection of 100 cc Omnipaque 350 IV contrast. 3 plane MIP and/or 3D reconstructions were produced. All CT scans at this location are per formed using CT dose reduction for ALARA by means of automated exposure control. COMPARISON: None available. FINDINGS: VASCULAR FINDINGS: PULMONARY ARTERY: Pulmonary artery is normal in size. No filling defects are present compatible with pulmonary artery embolus.. THORACIC AORTA: No significant abnormality. CORONARY ARTERY CALCIFICATION: None. NONVASCULAR FINDINGS: LOWER NECK:Soft tissues of the lower neck and thyroid demonstrate no significant abnormalities or acu te findings. HEART: No significant abnormality. MEDIASTINUM / PRASANNA: No significant abnormality. ESOPHAGUS: No significant abnormality. LYMPH NODES: No adenopathy within the axilla, mediastinum, or prasanna. LUNGS: No acute air space or interstitial disease. PLEURA: No pleural effusion. No pneumothorax. THORACIC SOFT TISSUES: No significant abnormality of the chest wall or upper thoracic musculature. BONES: No significant skeletal abnormalities. ADDITIONAL CHEST FINDINGS: None. UPPER ABDOMEN: No significant abnormality. IMPRESSION: 1. No CT evidence for pulmonary embolism. 2. No acute findings. Signer Name: Joe Pina II, MD Signed: 12/22/2021 1:30 AM Workstation Name: [id number]
[2021-12-22] MEDS ORDERED: traMADol 50 MG TAB PO PRN (05:23)
[2021-12-22] MEDS ORDERED: MORPHINE 4 MG/1 ML INJ IV PRN (05:23)
[2021-12-22] MEDS ORDERED: ACETAMINOPHEN 325 MG TAB PO PRN (05:23)
[2021-12-22] MEDS ORDERED: NITROGLYCERIN 0.4 MG TAB SUBL SL PRN (05:23)
--- NOTE | 2021-12-22 05:31 | History and Physical Report ---
History of Present Illness Date of examination: 12/22/21 Date of admission: 12/22/21 Chief complaint: Syncope History of present illness: 46-year-old female with history of anemia was brought to the emergency room because of syncope. The patient states for the past 2 to 3 days she has had intermittent palpitations lasting several seconds. Patient states this morning while washing dishes she again felt her heart fluttering and had a syncopal episode waking up on the floor with her son standing over her. Son called 911 the patient was transported to the ED. Patient admits to some shortness of breath with a fluttering but denies chest pain nausea vomiting. Patient denies history of fever. The patient states she has been vaccinated against COVID In the emergency room all work-up is negative. Chest x-ray shows no definite focal infiltrate no pneumothorax. CTA of the chest shows no PE. CT head shows no acute intracranial abnormality. Initial cardiac enzyme is negative. So going to admit the patient, will do serial cardiac enzymes and order echocardiog olivia Past History Past Medical History: anemia, other (Anemia fibroid) Past Surgical History: Other (C-SECTIONS X3, TUBILIGATION) Medications and Allergies Allergies Allergy/AdvReac Type Severity Reaction Status Date / Time metronidazole [From Flagyl] Allergy Unknown Verified 12/21/21 14:06 Penicillins Allergy Unknown Verified 12/21/21 14:06 prochlorperazine Allergy Unknown Verified 12/21/21 14:06 [From Compazine] promethazine [From Phenergan] Allergy Unknown Verified 12/21/21 14:06 sumatriptan [From Imitrex] Allergy Unknown Verified 12/21/21 14:06 Home Medications Medication Instructions Recorded Confirmed Last Taken Type Ferrous Gluconate [Fergon 325 MG 324 mg PO QDAY #30 tablet 08/26/19 Unknown Rx tab] Vit C/Ascorbate Calcium,Sodium 500 mg PO QDAC #30 liquid 08/26/19 Unknown Rx [Vitamin C 500 mg/15 ml Liquid] Review of Systems Constitutional: weakness Cardiovascular: syncope Exam - Constitutional Vitals: Temp Pulse Resp BP Pulse Ox 98.3 F 79 17 125/53 99 12/21/21 14:04 12/22/21 03:55 12/22/21 03:55 12/22/21 03:55 12/22/21 03:55 General appearance: Present: no acute distress, well-nourished - EENT Eyes: Present: PERRL ENT: hearing intact, clear oral mucosa - Neck Neck: Present: supple, normal ROM - Respiratory Respiratory effort: normal Respiratory: bilateral: CTA - Cardiovascular Heart Sounds: Present: S1 & S2. Absent: rub, click - Extremities Extremities: pulses symmetrical, No edema Peripheral Pulses: within normal limits - Abdominal General gastrointestinal: Present: soft, non-tender, non-distended, normal bowel sounds Female genitourinary: Present: normal - Integumentary Integumentary: Present: clear, warm, dry - Musculoskeletal Musculoskeletal: gait normal, strength equal bilaterally - Psychiatric Psychiatric: appropriate mood/affect, intact judgment & insight - Neurologic Neurologic: CNII-XII intact, moves all extremities HEART Score - HEART Score Troponin: Troponin T < 0.010 ng/mL (0.00-0.029) 12/21/21 17:29 Results - Labs CBC & Chem 7: 12/21/21 15:15 12/21/21 15:15 Labs: Laboratory Last Values WBC 4.4 K/mm3 (4.5-11.0) L 12/21/21 15:15 RBC 4.28 M/mm3 (3.65-5.03) 12/21/21 15:15 Hgb 9.8 gm/dl (10.1-14.3) L 12/21/21 15:15 Hct 32.2 % (30.3-42.9) 12/21/21 15:15 MCV 75 fl (79-97) L 12/21/21 15:15 MCH 23 pg (28-32) L 12/21/21 15:15 MCHC 31 % (30-34) 12/21/21 15:15 RDW 18.3 % (13.2-15.2) H 12/21/21 15:15 Plt Count 351 K/mm3 (140-440) 12/21/21 15:15 Lymph % (Auto) 33.8 % (13.4-35.0) 12/21/21 15:15 [place] % (Auto) 9.0 % (0.0-7.3) H 12/21/21 15:15 Eos % (Auto) 2.1 % (0.0-4.3) 12/21/21 15:15 Baso % (Auto) 0.8 % (0.0-1.8) 12/21/21 15:15 Lymph # (Auto) 1.5 K/mm3 (1.2-5.4) 12/21/21 15:15 [place] # (Auto) 0.4 K/mm3 (0.0-0.8) 12/21/21 15:15 Eos # (Auto) 0.1 K/mm3 (0.0-0.4) 12/21/21 15:15 Baso # (Auto) 0.0 K/mm3 (0.0-0.1) 12/21/21 15:15 Seg Neutrophils % 54.3 % (40.0-70.0) 12/21/21 15:15 Seg Neutrophils # 2.4 K/mm3 (1.8-7.7) 12/21/21 15:15 D-Dimer 313.58 ng/mlDDU (0-234) H 12/21/21 22:52 Sodium 137 mmol/L (137-145) 12/21/21 15:15 Potassium 4.3 mmol/L (3.6-5.0) 12/21/21 15:15 Chloride 103.1 mmol/L (98-107) 12/21/21 15:15 Carbon Dioxide 23 mmol/L (22-30) 12/21/21 15:15 Anion Gap 15 mmol/L 12/21/21 15:15 BUN 12 mg/dL (7-17) 12/21/21 15:15 Creatinine 1.1 mg/dL (0.6-1.2) 12/21/21 15:15 Estimated GFR > 60 ml/min 12/21/21 15:15 BUN/Creatinine Ratio 11 % 12/21/21 15:15 Glucose 151 mg/dL (65-100) H 12/21/21 15:15 Calcium 9.3 mg/dL (8.4-10.2) 12/21/21 15:15 Magnesium 1.90 mg/dL (1.7-2.3) 12/21/21 22:52 Total Bilirubin 0.20 mg/dL (0.1-1.2) 12/21/21 15:15 AST 17 units/L (5-40) 12/21/21 15:15 ALT 14 units/L (7-56) 12/21/21 15:15 Alkaline Phosphatase 98 units/L (35-129) 12/21/21 15:15 Troponin T < 0.010 ng/mL (0.00-0.029) 12/21/21 17:29 Total Protein 7.8 g/dL (6.3-8.2) 12/21/21 15:15 Albumin 4.0 g/dL (3.9-5) 12/21/21 15:15 Albumin/Globulin Ratio 1.1 % 12/21/21 15:15 TSH 2.030 mlU/mL (0.270-4.200) 12/21/21 22:52 Free T4 1.17 ng/dL (0.76-1.46) 12/21/21 22:52 Urine Color Yellow (Yellow) 12/21/21 22:39 Urine Turbidity Clear (Clear) 12/21/21 22:39 Urine pH 5.0 (5.0-7.0) 12/21/21 22:39 Ur Specific [place] 1.025 (1.003-1.030) 12/21/21 22:39 Urine Protein <15 mg/dl mg/dL (Negative) 12/21/21 22:39 Urine Glucose (UA) Negative mg/dL (Negative) 12/21/21 22:39 Urine Ketones Negative mg/dL (Negative) 12/21/21 22:39 Urine Blood Negative (Negative) 12/21/21 22:39 Urine Nitrite Negative (Negative) 12/21/21 22:39 Ur Reducing Substances Not Reportable 12/21/21 22:39 Urine Bilirubin Negative (Negative) 12/21/21 22:39 Urine Ictotest Not Reportable 12/21/21 22:39 Urine Urobilinogen < 2.0 mg/dL (<2.0) 12/21/21 22:39 Ur Leukocyte Esterase Negative (Negative) 12/21/21 22:39 Urine WBC (Auto) 1.0 /HPF (0.0-6.0) 12/21/21 22:39 Urine RBC (Auto) 2.0 /HPF (0.0-6.0) 12/21/21 22:39 U Epithel Cells (Auto) 6.0 /HPF (0-13.0) 12/21/21 22:39 Urine Mucus 2+ /HPF 12/21/21 22:39 Blood Type A POSITIVE 12/21/21 15:15 Antibody Screen Negative 12/21/21 15:15 - Imaging and Cardiology Chest x-ray: report reviewed CT scan - chest: report reviewed CT Scan - head: report reviewed Assessment and Plan VTE prophylaxis?: Chemical Plan of care discussed with patient/family: Yes - Patient Problems (1) Syncope Current Visit: Yes Status: Acute Plan to address problem: Admit the patient to the medical floor. Oxygen via nasal cannula 3 L/min. DuoNeb by nebulizer every 4 hours. Normal saline at the rate of 100 cc/h. Aspirin 325 mg p.o. daily. Lipitor 40 mg p.o. daily. We do the serial cardiac enzyme. We also do a echocardiogram. Consult cardiology if needed (2) Palpitations Current Visit: Yes Status: Acute Plan to address problem: Normal saline at the rate of 100 cc/h. Aspirin 325 mg p.o. daily. Lipitor 40 mg p.o. daily. We do the serial cardiac enzyme. We also do a echocardiogram. Consult cardiology if needed (3) Anemia, iron deficiency Current Visit: No Status: Acute Plan to address problem: Stable. We will continue the home medication (4) DVT prophylaxis Current Visit: Yes Status: Acute Plan to address problem: Heparin 5000 units subcu every 12 hours for DVT prophylaxis. Deficit 20 mg p.o. twice daily for GI prophylaxis. Patient is a full code
[2021-12-22 09:35] LABS: BUN/Creatinine Ratio 16; Blood Urea Nitrogen 13 mg/dL (7-17); Hemolysis Index 12
[2021-12-22 09:38] LABS: Iron 14 ug/dL (37-170); Total Iron Binding Capacity 381 mcg/dL (250-450)
[2021-12-22 09:51] LABS: Basophils # (Auto) 0.1 K/mm3 (0.0-0.1); Basophils % (Auto) 1.3 % (0.0-1.8); Eosinophils # (Auto) 0.1 K/mm3 (0.0-0.4); Eosinophils % (Auto) 3.4 % (0.0-4.3); Hematocrit 30.5 % (30.3-42.9); Hemoglobin 9.4 gm/dl (10.1-14.3); Lymphocytes # (Auto) 1.6 K/mm3 (1.2-5.4); Lymphocytes % (Auto) 38.9 % (13.4-35.0); Mean Corpuscular HGB Conc 31 % (30-34); Mean Corpuscular Volume 75 fl (79-97); Monocytes # (Auto) 0.4 K/mm3 (0.0-0.8); Monocytes % (Auto) 9.3 % (0.0-7.3); Platelet Count 334 K/mm3 (140-440); Red Blood Count 4.07 M/mm3 (3.65-5.03); Red Cell Distribution Width 19.1 % (13.2-15.2)
--- NOTE | 2021-12-22 09:58 | Electrocardiograph Report ---
[facility] Test Date: 2021-12-21 Test Time: 14:17:54 Pat Name: AGA PRECIADO Department: Room: [place] [address] Gender: F Director Sports: HUGO : 1975 Requested By: CORNELIUS MOREIRA Order Number: [id number] Reading MD: Renato Reyes Measurements Intervals [place] Rate: 75 P: 63 AK: 155 QRS: 56 QRSD: 86 T: 48 QT: 388 QTc: 434 Interpretive Statements Sinus rhythm No previous ECG available for comparison Electronically Signed On 12-22-2021 9:57:44 EST by Renato Reyes
[2021-12-22] MEDS: HEPARIN 5,000 UNIT/1 ML VIAL SUB-Q SCH (11:00)
--- NOTE | 2021-12-22 11:30 | Vascular Lab Report ---
DUPLEX DOPPLER LOWER EXTREMITY VEINS, BILATERAL INDICATION / CLINICAL INFORMATION: Assess for DVTs. TECHNIQUE: Duplex doppler imaging was performed through the veins of both lower extremities using david ous compression and other maneuvers. COMPARISON: None available. FINDINGS: RIGHT COMMON FEMORAL VEIN: Negative. RIGHT FEMORAL VEIN: Negative. RIGHT POPLITEAL VEIN: Negative. RIGHT CALF VEINS: Negative. LEFT COMMON FEMORAL VEIN: Negative. LEFT FEMORAL VEIN: Negative. LEFT POPLITEAL VEIN: Negative. LEFT CALF VEINS: Negative. ADDITIONAL FINDINGS: None. IMPRESSION: 1. No sonographic evidence for DVT in either lower extremity. Scribed by: Yohana Ordonez RDMS, RVT Scribed: 12/22/2021 10:16 AM I have reviewed the images, agree with this report, and edited this report as needed. Signer Name: Neeraj Lisa MD Signed: 12/22/2021 11:26 AM Workstation Name: [id number]
[2021-12-22] MEDS: PANTOPRAZOLE 40 MG TAB PO SCH (12:06)
[2021-12-22] MEDS ORDERED: SODIUM FERRIC GLUCON/SUCRO 125 MG in SODIUM CHLORIDE 0.9% 100 ML IV ONE ×2 (13:00→16:00)
--- NOTE | 2021-12-22 13:22 | Event Note ---
Date: 12/22/21 The patient was seen and evaluated this morning, and she was found to be hemodynamically stable. The patient is pending TTE, bilateral lower extremity Dopplers, and iron profile.
[2021-12-22] MEDS: SODIUM CHLORIDE 0.9% 1000 ML 1,000 ML IV SCH (19:54)
[2021-12-23] MEDS: SODIUM CHLORIDE 0.9% 1000 ML 1,000 ML IV SCH (05:50)
[2021-12-23 08:28] VITALS: BP 135/94
[2021-12-23] MEDS: HEPARIN 5,000 UNIT/1 ML VIAL SUB-Q SCH (09:24)
[2021-12-23] MEDS: PANTOPRAZOLE 40 MG TAB PO SCH (09:25)
[2021-12-23] MEDS ORDERED: ASPIRIN EC 325 MG TAB PO SCH (10:00)
--- NOTE | 2021-12-23 10:57 | Electrocardiograph Report ---
[facility] Test Date: 2021-12-23 Test Time: 08:09:32 Pat Name: AGA PRECIADO Department: Room: A467 1 Gender: F Quiller Hand: PELON : 1975 Requested By: AMAIRANI KRAMER Order Number: [id number] Reading MD: Renato Reyes Measurements Intervals [place] Rate: 62 P: 61 TN: 169 QRS: 37 QRSD: 81 T: 34 QT: 415 QTc: 421 Interpretive Statements Sinus rhythm Compared to ECG 12/21/2021 14:17:54 No significant changes Electronically Signed On 12-23-2021 10:57:08 EST by Renato Reyes
--- NOTE | 2021-12-23 11:21 | Discharge Summary ---
Providers - Providers Date of Admission: 12/22/21 05:33 Date of discharge: 12/23/21 Attending physician: MARGARET LAWS MD 12/22/21 Consult to Cardiac Rehabilitation [CONS] Routine Reason For Exam: Phase I Primary care physician: SANGEETA METZ Hospitalization Reason for admission: Syncope Condition: Fair Pertinent studies: Reviewed. Procedures: None. Hospital course: Patient is a 46-year-old female past medical history of chronic anemia secondary to heavy menstrual cycles who presented after 2-3 days of intermittent palpitations, feelings of her heart fluttering, and a syncopal episode. Patient was transported to the ED via EMS where she admitted to having shortness of breath without a history of fevers, coughing, nausea, vomiting, or sick contacts. The patient also admits to being vaccinated against COVID-19. The patient was evaluated and had a an unremarkable chest x-ray, CTA chest, bilateral venous Dopplers, and TTE. Iron studies were performed revealing an iron level of 14. The patient was treated with IV iron x2. The patient endorses symptomatic improvement. Patient is medically cleared for discharge. Disposition: 01 HOME / SELF CARE / HOMELESS Final Discharge Diagnosis (Prints w/discharge instructions): Syncope, iron deficiency anemia, obesity. Time spent for discharge: 45 min Core Measure Documentation - Palliative Care Palliative Care/ Comfort Measures: Not Applicable - Core Measures Any of the following diagnoses?: none Exam - Constitutional Vitals: Temp Pulse Resp BP Pulse Ox 98.2 F 76 18 135/94 100 12/23/21 07:51 12/23/21 07:51 12/23/21 07:51 12/23/21 07:51 12/23/21 07:51 General appearance: Present: no acute distress, well-nourished, obese - EENT Eyes: Present: PERRL, EOM intact ENT: hearing intact, clear oral mucosa, dentition normal - Neck Neck: Present: supple, normal ROM - Respiratory Respiratory effort: normal Respiratory: bilateral: CTA - Cardiovascular Rhythm: regular Heart Sounds: Present: S1 & S2 - Extremities Extremities: no ischemia, pulses intact, pulses symmetrical, No edema, normal temperature, normal color, Full ROM Peripheral Pulses: within normal limits - Abdominal General gastrointestinal: Present: soft, non-tender, non-distended, normal bowel sounds Female genitourinary: Present: deferred - Rectal Rectal Exam: deferred - Integumentary Integumentary: Present: clear, warm, dry - Musculoskeletal Musculoskeletal: strength equal bilaterally - Psychiatric Psychiatric: appropriate mood/affect, intact judgment & insight, memory intact, cooperative - Neurologic Neurologic: CNII-XII intact, moves all extremities - Allied Health Allied health notes reviewed: nursing Plan Activity: no restrictions Diet: regular Additional Instructions: Patient is a 46-year-old female past medical history of chronic anemia secondary to heavy menstrual cycles who presented after 2-3 days of intermittent palpitations, feelings of her heart fluttering, and a syncopal episode. Patient was transported to the ED via EMS where she admitted to having shortness of breath without a history of fevers, coughing, nausea, vomiting, or sick contacts. The patient also admits to being vaccinated against COVID-19. The patient was evaluated and had a an unremarkable chest x-ray, CTA chest, bilateral venous Dopplers, and TTE. Iron studies were performed revealing an iron level of 14. The patient was treated with IV iron x2. The patient endorses symptomatic improvement. Patient is medically cleared for discharge. Care Plan Goals: Patient is medically clear for discharge. Assessment: Patient is a 46-year-old female past medical history of chronic anemia secondary to heavy menstrual cycles who presented after 2-3 days of intermittent palpitations, feelings of her heart fluttering, and a syncopal episode. Patient was transported to the ED via EMS where she admitted to having shortness of breath without a history of fevers, coughing, nausea, vomiting, or sick contacts. The patient also admits to being vaccinated against COVID-19. The patient was evaluated and had a an unremarkable chest x-ray, CTA chest, bilateral venous Dopplers, and TTE. Iron studies were performed revealing an iron level of 14. The patient was treated with IV iron x2. The patient endorses symptomatic improvement. Patient is medically cleared for discharge. Follow up with: SANGEETA METZ MD [Primary Care Provider] - 3-5 Days
--- NOTE | 2021-12-24 09:55 | Electrocardiograph Report ---
[facility] Test Date: 2021-12-23 Test Time: 11:12:23 Pat Name: AGA PRECIADO Department: Room: A467 1 Gender: F [employer] T[employer]: PELON : 1975 Requested By: AMAIRANI KRAMER Order Number: [id number] Reading MD: Renato Reyes Measurements Intervals [place] Rate: 72 P: 62 CA: 166 QRS: 33 QRSD: 78 T: 30 QT: 388 QTc: 424 Interpretive Statements Sinus rhythm Compared to ECG 12/23/2021 08:09:32 No significant changes Electronically Signed On 12-24-2021 9:54:34 EST by Renato Reyes
== END 2021-12-23 14:45 | disposition home or self-care (01) ==
LOC: ED 13:21 → 4A 12-22 05:33 → INTOOBSV 12-22 05:33 → 4A 12-22 19:32
PROVIDERS: ADMIT Hospitalist; ATTEND Student in an Organized Health Care Education/Training Program
DX: R55 Syncope and collapse (principal); R00.2 Palpitations; D50.9 Iron deficiency anemia, unspecified; D21.9 Benign neoplasm of connective and other soft tissue, unspecified; Z87.898 Personal history of other specified conditions; Z98.51 Tubal ligation status; Z98.891 History of uterine scar from previous surgery
CPT/HCPCS: 36415; 70450; 71046; 71275; 80048; 80053; 81001; 83550; 83735; 84439; 84443; 84484; 85025; 85379; 86850; 86900; 86901; 93005; 93010; 93970; 96361; 96365; 96366; 96372; 99285; C8929; G0378; J1644; J2916; J7030; Q9967; 93306; Q0162